=== PATIENT | male | born 1990 | race Caucasian/White ===

== ENCOUNTER → 2021-05-01 | Outpatient (CLI) | payer OTHER | LOC: US 09:21 | DX: E83.110 Hereditary hemochromatosis (principal) | CPT/HCPCS: ECHO; 93306 ==

== ENCOUNTER → 2021-05-14 | Outpatient (CLI) | payer OTHER | LOC: US 09:24 | DX: E83.110 Hereditary hemochromatosis (principal); K76.9 Liver disease, unspecified | CPT/HCPCS: 76700 ==

== ENCOUNTER → 2021-06-07 | Outpatient (CLI) | payer OTHER | LOC: MRI 05-30 11:00 | DX: K76.9 Liver disease, unspecified (principal); D18.09 Hemangioma of other sites | CPT/HCPCS: 36415; 74183; 82565; A9577 ==